=== PATIENT | female | born 1955 | race Two or more races ===

== ENCOUNTER 2023-12-20 15:06 | Inpatient (IN) | payer MEDICARE, OTHER ==
[~2023-12-20] VITALS: Ht 170.2 cm; Wt 76.7 kg
[2023-12-20] MEDS ORDERED: ACET-868 PO (15:51)
[2023-12-20] MEDS ORDERED: MAGN400O6 PO (15:51)
[2023-12-20] MEDS ORDERED: MAG30ORA PO (15:51)
[2023-12-20] MEDS ORDERED: MELA1TAB47 PO (15:51)
[2023-12-20] MEDS ORDERED: DIVA-78 PO (15:51)
[2023-12-20] MEDS ORDERED: AMLO5TAB4 PO (15:51)
[2023-12-20] MEDS ORDERED: MULT-754 PO (15:51)
[2023-12-20] MEDS ORDERED: DOCU250C14 PO (15:51)
[2023-12-20 15:52] LABS: BASOPHILS % (AUTO) 0.5 % (0.0-2.0); EOSINOPHILS # (AUTO) 0.1 K/uL (0.0-0.7); HEMATOCRIT 38 % (33-45); HEMOGLOBIN 13.1 g/dL (11.5-14.8); LYMPHOCYTES # (AUTO) 3.2 K/uL (0.8-4.8); LYMPHOCYTES % (AUTO) 40.5 % (20.0-44.0); MEAN CORPUSCULAR HEMOGLOBIN 31 PG (26.0-33.0); MEAN CORPUSCULAR HGB CONC 34 g/dl (31.0-36.0); MEAN CORPUSCULAR VOLUME 92 fL (82-100); MONOCYTES # (AUTO) 0.8 K/uL (0.1-1.30); MONOCYTES % (AUTO) 10.7 % (2.0-12.0); NEUTROPHILS # (AUTO) 3.7 K/uL (1.8-8.9); NEUTROPHILS % (AUTO) 47.3 % (43.0-81.0); PLATELET COUNT (AUTO) 254 K/uL (150-450); WHITE BLOOD COUNT (AUTO) 7.9 K/uL (4.3-11.0)
[2023-12-20 16:01] LABS: CALCIUM, SERUM 8.9 mg/dL (8.5-10.1); CARBON DIOXIDE 26 mmol/L (21-32); CHLORIDE 102 mmol/L (98-107); CREATININE 0.7 mg/dL (0.6-1.3); GLUCOSE 104 mg/dL (74-106); POTASSIUM 4.1 mmol/L (3.5-5.1); SODIUM SERUM 134 mmol/L (136-145); UREA NITROGEN, BLOOD 20 mg/dL (7-18)
[2023-12-20 16:08] LABS: ALANINE AMINOTRANSFERASE 29 U/L (12-78); ALBUMIN 3.4 g/dL (3.4-5.0); ALCOHOL, BLOOD < 3 mg/dL (0-10); ALKALINE PHOSPHATASE 60 U/L (46-116); ASPARTATE AMINOTRANSFERASE 38 U/L (15-37); BILIRUBIN,TOTAL 0.3 mg/dL (0.2-1.0)
[2023-12-20 16:13] LABS: SALICYLATE 1.5 mg/dL (2.8-20.0)
[2023-12-20 16:14] LABS: ACETAMINOPHEN 0 ug/ml (10-30)
[2023-12-20 16:21] LABS: APPEARANCE,URINE Clear (CLEAR); BILIRUBIN,URINE Negative (NEGATIVE); BLOOD, URINE Trace-intact Ery/uL (NEGATIVE); COLOR,URINE Other (YELLOW); KETONES,URINE Negative (NEGATIVE); LEUKOCYTE ESTERASE ,URINE Small (NEGATIVE); NITRITE, URINE Negative (NEGATIVE); PROTEIN,URINE Negative (NEGATIVE); UGLUCOSE Negative (NEGATIVE); UROBILINOGEN,URINE 0.2 EU/dL (0.2)
[2023-12-20 16:28] LABS: AMPHETAMINE, URINE NEGATIVE (NEGATIVE); BARBITURATE, URINE NEGATIVE (NEGATIVE); BENZODIAZEPINE, URINE NEGATIVE (NEGATIVE); CANNABINOID, URINE NEGATIVE (NEGATIVE); COCCAINE, URINE NEGATIVE (NEGATIVE); OPIATE, URINE NEGATIVE (NEGATIVE); PHENCYCLIDINE SCREEN,URINE NEGATIVE (NEGATIVE)
[2023-12-20 16:45] LABS: ADD URINE CULTURE YES; BACTERIA,URINE Many /HPF (None Seen); SQUAMOUS EPITHELIAL CELL,UR Few /HPF (None Seen); URINE AMORPHOUS URATE Moderate /HPF (None Seen); WBC,URINE 21-50 /HPF (0-3)
[2023-12-20] MEDS: IV NS 0.9% 500 ML BAG IV ONE (17:00)
[2023-12-20] MEDS ORDERED: ACETAMINOPHEN 325 MG TABLET PO PRN (17:30)
[2023-12-20] MEDS ORDERED: ONDANSETRON HCL/PF 4 MG/2 ML VIAL IVP PRN (17:30)
[2023-12-20] MEDS: DIVALPROEX SODIUM 500 MG TABLET.DR PO SCH (18:56)
[2023-12-20] MEDS: AMLODIPINE BESYLATE 5 MG TABLET PO SCH (18:57)
[2023-12-20] MEDS: ENOXAPARIN SODIUM 40 MG/0.4 ML DISP.SYRIN SQ SCH (18:57)
[2023-12-20 18:58] VITALS: BP 154/75; TEMP 98.2; O2SAT 99
[2023-12-20] MEDS: CEFTRIAXONE 1 G in IV D5W 50 ML IV SCH (19:52)
[2023-12-20 20:00] VITALS: BP 149/69; TEMP 97.5; O2SAT 98
[2023-12-21] MEDS: IV NS 0.9% 1,000 ML IV PRN (03:11)
[2023-12-21 04:00] VITALS: BP 116/84; TEMP 97.7; O2SAT 98
[2023-12-21 08:00] VITALS: BP 168/88; TEMP 97.7; O2SAT 98
[2023-12-21] MEDS: DOCUSATE SODIUM 250 MG CAPSULE PO SCH (08:25)
[2023-12-21] MEDS: MULTIVIT W/MINERALS 1 TAB TABLET PO SCH (08:25)
[2023-12-21] MEDS: MAGNESIUM HYDROXIDE 30 ML UDC PO PRN (08:34)
[2023-12-21 09:34] LABS: BASOPHILS % (AUTO) 0.4 % (0.0-2.0); EOSINOPHILS # (AUTO) 0.1 K/uL (0.0-0.7); EOSINOPHILS % (AUTO) 1.6 % (0.0-6.0); HEMATOCRIT 39 % (33-45); HEMOGLOBIN 13.4 g/dL (11.5-14.8); LYMPHOCYTES # (AUTO) 3.2 K/uL (0.8-4.8); LYMPHOCYTES % (AUTO) 42.6 % (20.0-44.0); MEAN CORPUSCULAR HEMOGLOBIN 31 PG (26.0-33.0); MEAN CORPUSCULAR HGB CONC 34 g/dl (31.0-36.0); MEAN CORPUSCULAR VOLUME 91 fL (82-100); MONOCYTES # (AUTO) 0.8 K/uL (0.1-1.30); MONOCYTES % (AUTO) 10.7 % (2.0-12.0); NEUTROPHILS # (AUTO) 3.3 K/uL (1.8-8.9); NEUTROPHILS % (AUTO) 44.7 % (43.0-81.0); PLATELET COUNT (AUTO) 254 K/uL (150-450); RED BLOOD CELL COUNT(AUTO) 4.28 MIL/uL (4.0-5.2); WHITE BLOOD COUNT (AUTO) 7.5 K/uL (4.3-11.0)
[2023-12-21 09:56] LABS: CALCIUM, SERUM 9.4 mg/dL (8.5-10.1); CREATININE 0.5 mg/dL (0.6-1.3); POTASSIUM 3.9 mmol/L (3.5-5.1)
[2023-12-21] MEDS: MAG HYDROX/AL HYDROX/SIMETH 30 ML UDC PO PRN (14:42)
[2023-12-21] MEDS: LORAZEPAM 0.5 MG TABLET PO PRN (15:11)
[2023-12-21 16:00] VITALS: BP 144/70; TEMP 98.9; O2SAT 98
[2023-12-21 20:00] VITALS: BP 156/75; TEMP 98.3; O2SAT 98
[2023-12-22 04:00] VITALS: BP 159/87; TEMP 98.5; O2SAT 98
[2023-12-22 08:00] VITALS: BP 146/83; TEMP 97.8; O2SAT 95
[2023-12-22 16:00] VITALS: BP 160/72; TEMP 98.1; O2SAT 98
[2023-12-22 20:00] VITALS: BP 146/80; TEMP 97.7; O2SAT 97
[2023-12-23 08:00] VITALS: BP 161/73; TEMP 97.8; O2SAT 98
[2023-12-23] MEDS ORDERED: CEPH500C2 PO (11:04)
[2023-12-23] MEDS ORDERED: DIVA-78 PO (15:38)
[2023-12-23 16:00] VITALS: BP 133/80; TEMP 97.4; O2SAT 99
== END 2023-12-23 17:38 | DRG 689 ==
LOC: ER 15:29 → MEDSG1 18:22
PROVIDERS: ADMIT Nurse Practitioner Acute Care; ATTEND Nurse Practitioner Acute Care
DX: N39.0 Urinary tract infection, site not specified (principal); G93.41 Metabolic encephalopathy; E87.1 Hypo-osmolality and hyponatremia; E86.0 Dehydration; R62.7 Adult failure to thrive; I10 Essential (primary) hypertension; F31.9 Bipolar disorder, unspecified; F41.9 Anxiety disorder, unspecified; R41.9 Unspecified symptoms and signs involving cognitive functions and awareness; Z88.0 Allergy status to penicillin; Z88.6 Allergy status to analgesic agent; Z88.8 Allergy status to other drugs, medicaments and biological substances; B96.89 Other specified bacterial agents as the cause of diseases classified elsewhere; Z91.148 Patient's other noncompliance with medication regimen for other reason
CPT/HCPCS: 36415; 80048-TC; 80076-TC; 80164-TC; 81001; 85025-TC; 87086-TC; A4223; G0378; G0480; J0696; J1650; J7030; J7040; J7060